=== PATIENT | female | born 2005 | race Caucasian/White ===

== ENCOUNTER 2023-05-05 13:12 | Emergency (ER) | payer OTHER ==
[2023-05-05 13:25] VITALS: TEMP 98.5
--- NOTE | 2023-05-05 17:16 | ED ---
General Adult HPI - General Chief complaint: Abdominal Pain Stated complaint: Abd Pain Time Seen by Provider: 05/05/23 16:53 Source: patient, family Mode of arrival: ambulatory Limitations: no limitations - History of Present Illness Initial comments: Dictation was produced using zanda dictation software. please excuse any grammatical, word or spelling errors. Chief Complaint: 17-year-old female presents with anterior abdominal mass History of Present Illness: Patient is a 17-year-old female complains ago she woke up from bed and noticed a bump on her mid abdomen. States that it's slightly painful to touch. No nausea or vomiting. Symptoms are not worse with cough, Valsalva or straining. She has no history of hernia. Denies any history of abdominal surgery. No other complaints. Patient frequently gets skin furuncles especially around seasons with humid temperatures The ROS documented in this emergency department record has been reviewed and confirmed by me. Those systems with pertinent positive or negative responses have been documented in the HPI. All other systems are other negative and/or noncontributory. - Related Data Previous Rx's Medication Instructions Recorded Clindamycin [Cleocin] 300 mg PO Q8H 5 Days #30 cap 05/05/23 Allergies Allergy/AdvReac Type Severity Reaction Status Date / Time No Known Allergies Allergy Verified 05/05/23 13:19 Review of Systems ROS Statement: Those systems with pertinent positive or pertinent negative responses have been documented in the HPI. ROS Other: All systems not noted in ROS Statement are negative. Past Medical History Past Medical History: No Reported History History of Any Multi-Drug Resistant Organisms: None Reported Past Surgical History: No Surgical Hx Reported Smoking Status: Never smoker Past Alcohol Use History: None Reported Past Drug Use History: None Reported General Exam - General Exam Comments Initial Comments: PHYSICAL EXAM: General Impression: Alert and oriented x3, not in acute distress HEENT: Normocephalic atraumatic, extra-ocular movements intact, pupils equal and reactive to light bilaterally, mucous membranes moist. Cardiovascular: Heart regular rate and rhythm Chest: Able to complete full sentences, no retractions, no tachypnea Abdomen: abdomen soft, non-tender, non-distended, no organomegaly, small mobile rubbery feeling cystlike structure to the epigastrium, size of approximately 1 x 1 cm. Mild erythema to the surface of the skin, no drainage Musculoskeletal: Pulses present and equal in all extremities, no peripheral edema Motor: no focal deficits noted Neurological: CN II-XII grossly intact, no focal motor or sensory deficits noted Skin: Intact with no visualized rashes Psych: Normal affect and mood Limitations: no limitations Course Vital Signs 05/05/23 13:15 Temperature 98.5 F Pulse Rate 100 Respiratory 20 Rate Blood Pressure 105/74 O2 Sat by Pulse 98 Oximetry - Reevaluation(s) Reevaluation #1: 05/05/23 17:11 [id number] bedside ultrasound shows cystlike structure measuring approximately 1 x 1 cm. No continuity past the peritoneum. No surrounding cobblestoning to suggest cellulitis Medical Decision Making - Medical Decision Making Was pt. sent in by a medical professional or institution (, PA, OIL REFINERY OPERATOR, urgent care, hospital, or fpc...) When possible be specific @ -No Did you speak to anyone other than the patient for history (EMS, parent, family, police, friend...)? What history was obtained from this source @ -No Did you review nursing and triage notes (agree or disagree)? Why? @ -I reviewed and agree with nursing and triage notes Were old charts reviewed (outside hosp., previous admission, EMS record, old EKG, old radiological studies, urgent care reports/EKG's, fpc records)? Report findings @ -No old charts were reviewed Differential Diagnosis (chest pain, altered mental status, abdominal pain women, abdominal pain men, vaginal bleeding, musculoskeletal, weakness, fever, dyspnea, syncope, headache, dizziness, GI bleed, back pain, seizure, CVA, palpatations, mental health)? @ -Differential Abdominal Pain Women: Appendicitis, Cholecystitis, diverticulosis, ischemic bowel, pancreatitis, hepatitis, UTI, gastroenteritis, AAA, incarcerated hernia, bowel obstruction, constipation, inflammatory bowel, hepatitis, peptic ulcer disease, splenic infar ction, perforated viscus, vulvitis, ovarian torsion, PID, kidney stone, placenta abruption, this is not meant to be an all-inclusive list EKG interpreted by me (3pts min.). @ -None done X-rays interpreted by me (1pt min.). @ -None done CT interpreted by me (1pt min.). @ -None done U/S interpreted by me (1pt. min.). @ -None done What testing was considered but not performed or refused? (CT, X-rays, U/S, labs)? Why? @ -None What meds were considered but not given or refused? Why? @ -None Did you discuss the management of the patient with other professionals (professionals i.e. , PA, OIL REFINERY OPERATOR, lab, RT, psych nurse, social sciences lecturer, senior rd engineer, teacher, senior administrative services officer, adult protective caseworker)? Give summary @ -No Was smoking cessation discussed for >3mins.? @ -No Was critical care preformed (if so, how long)? @ -No Were there social determinants of health that impacted care today? How? (Homelessness, low income, unemployed, alcoholism, drug addiction, transportation, low edu. Level, literacy, decrease access to med. care, shelter, rehab)? @ -No Was there de-escalation of care discussed even if they declined (Discuss DNR or withdrawal of care, Hospice)? DNR status @ -No What co-morbidities impacted this encounter? (DM, HTN, Smoking, COPD, CAD, Cancer, CVA, ARF, Chemo, Hep., AIDS, mental health diagnosis, sleep apnea, morbid obesity)? @ -None Was patient admitted / discharged? Hospital course, mention meds given and route, prescriptions, significant lab abnormalities, going to OR and other pertinent info. @ -17 Year-old female presents to the emergency department for anterior abdominal wall. Clinical presentation consistent with cyst versus abscess. [id number] bedside ultrasound does not suggest ventral hernia. Patient well- appearing. Patient states that she frequently gets furuncles to the thorax and abdomen. Patient discharged with prescription for antibiotics and follow up with general surgeon. Patient told that she may need drainage of the small mass if her symptoms don't improve over time. Undiagnosed new problem with uncertain prognosis? @ -No Drug Therapy requiring intensive monitoring for toxicity (Heparin, Nitro, Insulin, Cardizem)? @ -No Were any procedures done? @ -No Diagnosis/symptom? Acute, or Chronic, or Acute on Chronic? Uncomplicated (without systemic symptoms) or Complicated (systemic symptoms)? @ -Cyst versus abscess Side effects of treatment? @ -No Exacerbation, Progression, or Severe Exacerbation? @ -No Poses a threat to life or bodily function? How? (Chest pain, [place], [place], pneumonia, PE, COPD, DKA, ARF, appy, cholecystitis, CVA, Diverticulitis, Homicidal, Suicidal, threat to staff... and all critical care pts) @ -No Disposition Clinical Impression: Cyst Disposition: HOME SELF-CARE Condition: Fair Instructions (If sedation given, give patient instructions): Cyst (ED) Additional Instructions: seek medical attention if you begin having symptoms of fever, chills or night sweats along with nausea and worsening abdominal pain. Otherwise should her symptoms not improve these follow up with general surgeon for outpatient evaluation Prescriptions: Clindamycin [Cleocin] 300 mg PO Q8H 5 Days #30 cap Is patient prescribed a controlled substance at d/c from ED?: No Referrals: Jericho Diamond MD [STAFF PHYSICIAN] - 1-2 days Time of Disposition: 17:16
[2023-05-05 17:42] VITALS: BP 101/65; PULSE 82; RESP 18
== END 2023-05-05 17:43 | disposition home or self-care (01) ==
LOC: EC 13:12
DX: L05.01 Pilonidal cyst with abscess (principal)
CPT/HCPCS: 99283; 99284

== ENCOUNTER 2025-01-15 13:58 | Inpatient (IN) | payer MEDICAID, OTHER ==
--- NOTE | 2025-01-15 14:35 | ED ---
General Adult HPI - General Chief complaint: Psychiatric Symptoms Stated complaint: Mental health eval Time Seen by Provider: 01/15/25 14:16 Source: patient, family, RN notes reviewed Mode of arrival: ambulatory Limitations: no limitations - History of Present Illness Initial comments: Patient is a 19-year-old female presenting to the emergency department with concerns with mental health evaluation. Patient states she witnessed her boyfriend commit suicide 3 days ago. Patient has been depressed. Patient is not sleeping well. Patient is not eating or drinking well. Patient states she does not have thoughts or plan to kill herself however does wish that [facility] would take her away and that she would . - Related Data Previous Rx's Medication Instructions Recorded Clindamycin [Cleocin] 300 mg PO Q8H 5 Days #30 cap 05/05/23 Allergies Allergy/AdvReac Type Severity Reaction Status Date / Time No Known Allergies Allergy Verified 01/15/25 14:15 Review of Systems ROS Statement: Those systems with pertinent positive or pertinent negative responses have been documented in the HPI. ROS Other: All systems not noted in ROS Statement are negative. Constitutional: Denies: fever Eyes: Denies: eye pain ENT: Denies: ear pain Respiratory: Denies: cough Cardiovascular: Denies: chest pain Psychiatric: Reports: as per HPI, depression Past Medical History Past Medical History: No Reported History History of Any Multi-Drug Resistant Organisms: None Reported Past Surgical History: No Surgical Hx Reported Smoking Status: Vaper Past Alcohol Use History: None Reported Past Drug Use History: None Reported General Exam Limitations: no limitations General appearance: alert Head exam: Present: normocephalic Eye exam: Present: normal appearance Neck exam: Present: normal inspection Respiratory exam: Present: normal lung sounds bilaterally Cardiovascular Exam: Present: regular rate, normal rhythm GI/Abdominal exam: Present: soft. Absent: tenderness Extremities exam: Present: normal inspection Neurological exam: Present: alert Psychiatric exam: Present: depressed, flat affect Skin exam: Present: normal color Course Vital Signs 01/15/25 14:05 Temperature 98.8 F Pulse Rate 88 Respiratory 22 Rate Blood Pressure 135/86 O2 Sat by Pulse 95 Oximetry Medical Decision Making - Medical Decision Making Was pt. sent in by a medical professional or institution (, PA, ASPHALT PAVING FOREMAN, urgent care, hospital, or skilled nursing...) When possible be specific @ -No Did you speak to anyone other than the patient for history (EMS, parent, family, police, friend...)? What history was obtained from this source @ -Mother is present who confirms patient's history Did you review nursing and triage notes (agree or disagree)? Why? @ -I reviewed and agree with nursing and triage notes Were old charts reviewed (outside hosp., previous admission, EMS record, old EKG , old radiological studies, urgent care reports/EKG's, skilled nursing records)? Report findings @ -No old charts were reviewed Differential Diagnosis (chest pain, altered mental status, abdominal pain women, abdominal pain men, vaginal bleeding, weakness, fever, dyspnea, syncope, headache, dizziness, GI bleed, back pain, seizure, CVA, palpatations, mental health, musculoskeletal)? @ -Differential Mental Health Depression, anxiety, bipolar, psychosis, schizophrenia, borderline personality, situational depression, adjustment disorder, behavioral disorder, brain tumor, malingering, substance abuse, encephalopathy, medication reaction, dementia, hypothyroidism, degenerative neurologic disorder, lupus.... This is not meant to be all-inclusive list EKG interpreted by me (3pts min.). @ -As above X-rays interpreted by me (1pt min.). @ -None done CT interpreted by me (1pt min.). @ -None done U/S interpreted by me (1pt. min.). @ -None done What testing was considered but not performed or refused? (CT, X-rays, U/S, labs)? Why? @ -None What meds were considered but not given or refused? Why? @ -None Did you discuss the management of the patient with other professionals (professionals i.e. , PA, ASPHALT PAVING FOREMAN, lab, RT, psych nurse, social science instructor, rope maker, teacher, aviation ordnance officer, case assistant)? Give summary @ -Case discussed with mental health worker time with plans for psychiatric admission Was smoking cessation discussed for >3mins.? @ -No Was critical care preformed (if so, how long)? @ -No Were there social determinants of health that impacted care today? How? (Homelessness, low income, unemployed, alcoholism, drug addiction, transportation, low edu. Level, literacy, decrease access to med. care, shelter, rehab)? @ -No Was there de-escalation of care discussed even if they declined (Discuss DNR or withdrawal of care, Hospice)? DNR status @ -No What co-morbidities impacted this encounter? (DM, HTN, Smoking, COPD, CAD, Cancer, CVA, ARF, Chemo, Hep., AIDS, mental health diagnosis, sleep apnea, morbid obesity)? @ -None Was patient admitted / discharged? Hospital course, mention meds given and route, prescriptions, significant lab abnormalities, going to OR and other pertinent info. @ -Patient presents with depression. Patient will be admitted with psychiatric care. Undiagnosed new problem with uncertain prognosis? @ -No Drug Therapy requiring intensive monitoring for toxicity (Heparin, Nitro, Insulin, Cardizem)? @ -No Were any procedures done? @ -No Diagnosis/symptom? @ -Depression Acute, or Chronic, or Acute on Chronic? @ -Acute Uncomplicated (without systemic symptoms) or Complicated (systemic symptoms)? @ -Default Side effects of treatment? @ -No Exacerbation, Progression, or Severe Exacerbation? @ -No Poses a threat to life or bodily function? How? (Chest pain, [place], [place], pneumonia, PE, COPD, DKA, ARF, appy, cholecystitis, CVA, Diverticulitis, Homicidal, Suicidal, threat to staff... and all critical care pts) @ -No - Lab Data Lab Results 01/15/25 Range/Units 14:56 Urine Opiates Screen Not Detected (NotDetected) Ur Oxycodone Screen Not Detected (NotDetected) Urine Methadone Screen Not Detected (NotDetected) Ur Barbiturates Screen Not Detected (NotDetected) U Tricyclic Antidepress Not Detected (NotDetected) Ur Phencyclidine Scrn Not Detected (NotDetected) Ur Amphetamines Screen Not Detected (NotDetected) U Methamphetamines Scrn Not Detected (NotDetected) U Benzodiazepines Scrn Detected H (NotDetected) Urine Cocaine Screen Not Detected (NotDetected) U Marijuana (THC) Screen Detected H (NotDetected) Disposition Clinical Impression: Depression Disposition: TRANSFER TO PSYCH HOSP/UNIT Is patient prescribed a controlled substance at d/c from ED?: No Referrals: None,Stated [Primary Care Provider] - 1-2 days Time of Disposition: 16:00
[2025-01-15 15:22] LABS: Amphetamine Screen,Urine Not Detected (NotDetected); Barbiturate Screen,Urine Not Detected (NotDetected); Benzodiazepines Screen,Urine Detected (NotDetected); Cocaine Screen,Urine Not Detected (NotDetected); Methadone Screen, Urine Not Detected (NotDetected); Opiate Screen,Urine Not Detected (NotDetected); Oxycodone Screen, Urine Not Detected (NotDetected); Phencyclidine Screen,Urine Not Detected (NotDetected); Tricyclic Antidepressant,Urine Not Detected (NotDetected); Urn Cannabinoid Scrn Detected (NotDetected)
[2025-01-15 18:45] LABS: Influenza A Not Detected (Not Detectd); Influenza B Not Detected (Not Detectd); RSV Not Detected (Not Detectd)
[2025-01-15] MEDS ORDERED: ACETAMINOPHEN TAB 325 MG TAB PO PRN (22:14)
[2025-01-15] MEDS ORDERED: OLANZapine 10 MG VIAL IM PRN (22:14)
[2025-01-15] MEDS ORDERED: hydrOXYzine HCL 25 MG TAB PO PRN (22:14)
[2025-01-15] MEDS ORDERED: MAG HYDROX/AL HYDROX/SIMETH 355 ML BOTTLE PO PRN (22:14)
[2025-01-15] MEDS ORDERED: IBUPROFEN 600 MG TAB PO PRN (22:14)
[2025-01-15] MEDS ORDERED: MAGNESIUM HYDROXIDE 2,400 MG/30 ML CUP PO PRN (22:14)
[2025-01-15] MEDS: OLANZapine 5 MG TAB PO PRN (23:28)
--- NOTE | 2025-01-16 00:53 | P.HPIM ---
History of Present Illness H&P Date: 01/16/25 Chief Complaint: Medical management 19-year-old female patient with no significant past medical history who is admitted under behavioral unit for management of depression. Past medical history none Past surgical history none Social history : No tobacco use, no alcohol use and no illicit drug use. She reports that she vapes PE : General: nontoxic, no distress, appears at stated age Derm: warm, dry, intact Head: atraumatic, normocephalic, symmetric Eyes: EOMI, anicteric sclera Mouth: no lip lesion, mucus membranes moist Cardiovascular: S1 S2 reg, no murmur, rubs, or gallops Lungs: CTA bilateral, no rales, no accessory muscle use Abdominal: soft, non-tender to palpataion, no appreciable organomegaly Extremities: no gross muscle atrophy, no edema, no contractures Neuro: Alert, Oriented, CNII-XII grossly intact, gait normal II: Pupils equal and reactive, no RAPD, normal visual field and fundus III, IV, : EOM intact, no gaze preference or deviation V: normal VII: no facial asymmetry VIII: normal hearing to speech Assessment and plan : - Major depression disorder: Managed by behavioral unit Time spent : 35 min Past Medical History Past Medical History: No Reported History History of Any Multi-Drug Resistant Organisms: None Reported Past Surgical History: No Surgical Hx Reported Smoking Status: Never smoker Past Alcohol Use History: None Reported Past Drug Use History: None Reported Medications and Allergies Home Medications Medication Instructions Recorded Confirmed Type Acetaminophen/Diphenhydramine 1 tab PO HS PRN 01/15/25 01/15/25 History [Tylenol PM 500-25mg] Allergies Allergy/AdvReac Type Severity Reaction Status Date / Time No Known Allergies Allergy Verified 01/15/25 17:36 Physical Exam Vitals: Vital Signs Temp Pulse Pulse Resp BP BP Pulse Ox 01/15/25 22:44 98.0 F 88 18 106/63 98 01/15/25 21:01 98.1 F 80 18 105/74 97 01/15/25 14:05 98.8 F 88 22 135/86 95 Intake and Output 01/15/25 01/15/25 01/16/25 14:59 22:59 06:59 Other: Weight 72.575 kg 83.915 kg 83.915 kg Results Labs: Abnormal Lab Results - Last 24 Hours (Table) 01/15/25 Range/Units 14:56 U Benzodiazepines Scrn Detected H (NotDetected) U Marijuana (THC) Screen Detected H (NotDetected)
[2025-01-16 08:13] LABS: Basophils # (A) 0.06 10*3/uL (0.00-0.10); Basophils % (A) 0.5 %; Eosinophils # (A) 0.08 10*3/uL (0.04-0.35); Eosinophils % (A) 0.7 %; HCT 41.9 % (37.2-46.3); HGB 14.4 g/dL (12.0-15.0); Lymphocytes # (A) 4.51 10*3/uL (0.90-5.00); Lymphocytes % (A) 37.3 %; MCH 31.6 pg (27.0-32.0); MCHC 34.4 g/dL (32.0-37.0); MCV 91.9 fL (80.0-97.0); Mean Platelet Volume 12.2 fL (9.5-12.2); Monocytes # (A) 0.68 10*3/uL (0.20-1.00); Monocytes % (A) 5.6 %; Neutrophils # (A) 6.74 10*3/uL (1.80-7.70); Neutrophils % (A) 55.7 %; Platelet Count 276 10*3/uL (140-440); RBC 4.56 10*6/uL (4.10-5.20); RDW 12.4 % (11.5-14.5)
[2025-01-16 08:25] LABS: ALT 11 U/L (4-34); AST 20 U/L (14-36); African American GFR (CKD) >90 (>60 ml/min/1.73 sqM); Albumin 4.7 g/dL (3.5-5.0); Alkaline Phosphatase 86 U/L (38-126); Anion Gap 10 mmol/L; Bilirubin, Delta 0.1 mg/dL (0.0-0.2); Bilirubin,Unconjugated 0.4 mg/dL (0.0-1.1); Blood Urea Nitrogen 13 mg/dL (7-17); Calcium 9.7 mg/dL (8.4-10.2); Carbon Dioxide 27 mmol/L (22-30); Chloride 104 mmol/L (98-107); Glucose 89 mg/dL (74-99); Non-African American GFR(CKD) >90 (>60 ml/min/1.73 sqM); Potassium 3.9 mmol/L (3.5-5.1); Sodium 141 mmol/L (137-145); Total Bilirubin 0.5 mg/dL (0.2-1.3); Total Protein 7.4 g/dL (6.3-8.2)
--- NOTE | 2025-01-16 11:47 | P.HP ---
Psychiatric H&P - . H&P Date: 01/16/25 History & Physical: Allergies Allergy/AdvReac Type Severity Reaction Status Date / Time No Known Allergies Allergy Verified 01/15/25 17:36 Vital Signs Temp 98.0 F 01/15/25 22:44 Pulse 88 01/15/25 22:44 Resp 18 01/15/25 22:44 BP 106/63 01/15/25 22:44 Pulse Ox 98 01/15/25 22:44 FiO2 Intake & Output 01/15/25 01/16/25 01/16/25 18:59 06:59 18:59 Weight 72.575 kg 83.915 kg Laboratory Last Values WBC 12.10 10*3/uL (4.50-10.00) H 01/16/25 07:41 RBC 4.56 10*6/uL (4.10-5.20) 01/16/25 07:41 Hgb 14.4 g/dL (12.0-15.0) 01/16/25 07:41 Hct 41.9 % (37.2-46.3) 01/16/25 07:41 MCV 91.9 fL (80.0-97.0) 01/16/25 07:41 MCH 31.6 pg (27.0-32.0) 01/16/25 07:41 MCHC 34.4 g/dL (32.0-37.0) 01/16/25 07:41 Plt Count 276 10*3/uL (140-440) 01/16/25 07:41 MPV 12.2 fL (9.5-12.2) 01/16/25 07:41 Immature Gran % (Auto) 0.2 % 01/16/25 07:41 Neutrophils % 55.7 % 01/16/25 07:41 Lymphocytes % 37.3 % 01/16/25 07:41 Monocytes % 5.6 % 01/16/25 07:41 Eosinophils % 0.7 % 01/16/25 07:41 Basophils % 0.5 % 01/16/25 07:41 Immature Gran # 0.03 10*3/uL (0.00-0.04) 01/16/25 07:41 Neutrophils # 6.74 10*3/uL (1.80-7.70) 01/16/25 07:41 Lymphocytes # 4.51 10*3/uL (0.90-5.00) 01/16/25 07:41 Monocytes # 0.68 10*3/uL (0.20-1.00) 01/16/25 07:41 Eosinophils # 0.08 10*3/uL (0.04-0.35) 01/16/25 07:41 Basophils # 0.06 10*3/uL (0.00-0.10) 01/16/25 07:41 Urine HCG, Qual Not Detected (Not Detectd) 01/15/25 14:56 Urine Opiates Screen Not Detected (NotDetected) 01/15/25 14:56 Ur Oxycodone Screen Not Detected (NotDetected) 01/15/25 14:56 Urine Methadone Screen Not Detected (NotDetected) 01/15/25 14:56 Ur Barbiturates Screen Not Detected (NotDetected) 01/15/25 14:56 U Tricyclic Antidepress Not Detected (NotDetected) 01/15/25 14:56 Ur Phencyclidine Scrn Not Detected (NotDetected) 01/15/25 14:56 Ur Amphetamines Screen Not Detected (NotDetected) 01/15/25 14:56 U Methamphetamines Scrn Not Detected (NotDetected) 01/15/25 14:56 U Benzodiazepines Scrn Detected (NotDetected) H 01/15/25 14:56 Urine Cocaine Screen Not Detected (NotDetected) 01/15/25 14:56 U Marijuana (THC) Screen Detected (NotDetected) H 01/15/25 14:56 Influenza Type A (PCR) Not Detected (Not Detectd) 01/15/25 13:30 Influenza Type B (PCR) Not Detected (Not Detectd) 01/15/25 13:30 RSV (PCR) Not Detected (Not Detectd) 01/15/25 13:30 SARS-CoV-2 (PCR) Not Detected (Not Detectd) 01/15/25 13:30 Dictation was produced using [employer] dictation software. Please excuse any grammatical, word or spelling errors. IDENTIFYING DATA: Patient is a 19 years old female presents to the emergency department for mental health evaluation. The patient lost her boyfriend to suicide 3 days ago. HPI: Patient presented to the hospital for mental health evaluation, she has been under a lot of stress since she witnessed her boyfriend commit suicide 3 days ago. She has been feeling down, depressed, not sleeping, drinking or eating well. The patient reported that she has no plan to harm or end her life however reported that she wish that [facility] will take her away and that she would . Per chart review the patient presented with her mother due to increased depression, reported SI with no plan. She witnessed her boyfriend committing suicide on . She has been experiencing depression symptoms for about 12 months however that increased after her boyfriend suicide. Upon evaluation in the unit the patient was in her room, agreed to speak with the technical document writer and the office. She states that her BF killed himself last Saturday, while talking to her on , states that he stole a car, and he had a court, states that she saw him hanging himself, and she called the police. States that he cheated on her and she threaten to leave him, states that he had really bad mental issues. She states that she was crying too much, feeling bad, depressed, and guilty, she admitted to feeling hopeless, helpless, and worthless for about 1 yr, and reported that depression increased lately. She rated depression at 9/10. She denied any current SI/HI or self harm, she denied any intention or plan, "I'm not like that." She admitted to being overwhelmed around people, and usually likes to keep to herself. She rated anxiety at 9/10. She states that music helps. Sleep was good last night, at home it was not that good, and she was crying. She denied nightmares, or flashbacks. Patient denies any flight of ideas racing thoughts and increased in goal directed behavior. She denied any manic or hypomanic symptoms. At this time patient denies any auditory or visual hallucinations. She denied using tobacco. Reported that she uses cannabis at times, last use 2 days ago, claims that she uses once a week, states that she stopped using alcohol 3 weeks ago, used to take 3-7 shots once a week, denied any withdrawal symptoms, or seizures in the past. Denied any other substances. States that she takes some medication at home for anxiety however she could not remember the name, she gave verbal permission for the technical document writer to speak with her mother however she could not recall her mother phone number. PAST PSYCHIATRIC HISTORY: - Inpatient Hospitalizations: denies - Outpatient Care: denies - Current Psychotropics: denies - Prior Psychotropics/Therapy: states that she use to talk anxiety medication, could not recall the name - Prior Psychiatric dx: denies - Suicidal Attempts: denies - Trauma History: recent BF suicide PMH: as per ER note Past Medical History: No Reported History History of Any Multi-Drug Resistant Organisms: None Reported Past Surgical History: No Surgical Hx Reported Smoking Status: Vaper Past Alcohol Use History: None Reported Past Drug Use History: None Reported ALLERGIES: as per EMR CHEMICAL DEPENDENCY HISTORY: as per HPI FAMILY PSYCHIATRIC/SUBSTANCE USE HISTORY: denies SOCIAL HISTORY: Patient was born and raised in [facility], lives with mom, and grandmother, claims that she has high school diploma, she is not working, reported that she has a learning disability. MENTAL STATUS EXAM: General Appearance: Patient appears to be stated age is alert, directable, and attempts to cooperate. Patient appears to have fair hygiene and grooming. Behavior: Patient is seated without any agitated behavior. Speech: Patient's speech is fluent and nonpressured. Mood/Affect: Patient reports their mood is "depressed", affect is congruent and constricted. Suicidality/Homicidality: Patient denies having any homicidal ideation intent or plan. Denies any suicidal ideations intent or plan Perceptions: Patient denies any visual hallucinations and denies any auditory hallucinations Though content/process: There is no evidence of any delusional thought content and thought process is linear and goal-directed. Memory and concentration: AOX3, grossly intact for the purposes of this session. Can spell "WORLD" backwards Judgment and insight: poor STRENGTHS/WEAKNESSES: strength is that patient is resilient. Weakness is that patient has poor judgment and is impulsive INTELLECT: average IMPRESSIONS: Major depressive disorder, recurrent, moderate Generalized anxiety disorder Rule out adjustment disorder with anxious and depressed mood Rule out acute stress disorder Rule out developmental/intellectual disability PLAN: -Patient is admitted under voluntary status to [facility]HU for stabilization of psychiatric symptoms and safety. Patient has signed adult voluntary form andmedication consent and is placed in patient's chart. -Medications : Start Prozac 10 mg p.o. daily to help with mood, depression and anxiety Start hydroxyzine 10 mg p.o. at bedtime to help with sleep -Hydroxyzine, Zyprexa PRN for agitation/aggression -Patient was counselled on cannabis abuse and desired to cut back on use -Collateral will be helpful, patient verbally agreed for us to contact her mother however she could not remember the phone number -Patient was informed of the risks, benefits and side effects of the medication and patient verbally consented to taking the medications, education was provided into the black box warning of increasing suicidal thoughts in 24 years old and younger. Patient signed med consent form and was placed in chart. -Internal Medicine consult to perform medical evaluation and physical. -NRT - not needed as patient does not smoke -SW on board for discharge planning. Encourage patient to participate in groups to work on coping skills. 01/16/25 08:20 01/16/25 09:14 01/16/25 11:42
[2025-01-16] MEDS: FLUoxetine HCL 10 MG CAP PO SCH (12:24)
[2025-01-16 13:22] LABS: Chol/HDL Ratio 1.42 Ratio; VLDL Calculation 4.58 mg/dL (5.00-40.00)
[2025-01-16] MEDS: hydrOXYzine HCL 10 MG TAB PO SCH (20:43)
--- NOTE | 2025-01-17 11:32 | P.PN ---
Progress Note - Text Progress Note Date: 01/17/25 Dictation was produced using [employer] dictation software. Please excuse any grammatical, word or spelling errors. Interval history: Patient was seen in the hallway and was directable and agreeable to speak with the scientific technical writer in the office for psychiatric follow-up. The patient states that she is feeling a little down today however overall better than yesterday, states that she slept well last night, and is has been eating her meals, claims improvement in her appetite. She states that depression, and anxiety has been improving and reported that being able to talk to others in the unit has been helping. She rated depression at 4/10, and anxiety at 2/10. States that she is still having the sad feeling and the pain in her heart, however she has been trying to distract herself, states that his is tomorrow and she is sad about it, states that "I may cry tomorrow." She denied any current SI/HI or self harm. Denied any AVH, or paranoia. States that mom was able to visit her yesterday and claims that it was good. States that she has been talking her medication and reported that she feel the night medication has been helping her falling a sleep. She denied any current side effects. She is tending to her ADL. Reported that she feels safe in the unit. MENTAL STATUS EXAM: General Appearance: Patient appears to be stated age is alert, directable, and attempts to cooperate. Patient appears to have fair hygiene and grooming. Behavior: Patient is seated without any agitated behavior. Speech: Patient's speech is fluent and nonpressured. Mood/Affect: Patient reports their mood is "down a little", affect is congruent and constricted. Suicidality/Homicidality: Patient denies having any homicidal ideation intent or plan. Denies any suicidal ideations intent or plan Perceptions: Patient denies any visual hallucinations and denies any auditory hallucinations Though content/process: There is no evidence of any delusional thought content and thought process is linear and goal-directed. Memory and concentration: AOX3, grossly intact for the purposes of this session. Can spell "WORLD" backwards Judgment and insight: Mildly improving IMPRESSIONS: Major depressive disorder, recurrent, moderate Generalized anxiety disorder Rule out adjustment disorder with anxious and depressed mood Rule out acute stress disorder Rule out developmental/intellectual disability Assessment/Plan: -Patient continues to meet criteria for inpatient psychiatric admission for symptom stabilization and safety. Patient is admitted under voluntary status to [facility] for stabilization of psychiatric symptoms and safety. Patient has signed adult voluntary form and medication consent and is placed in patient's chart. -Medications : - Continue Prozac 10 mg p.o. daily to help with mood, depression and anxiety - Continue hydroxyzine 10 mg p.o. at bedtime to help with sleep -Hydroxyzine, Zyprexa PRN for agitation/aggression -Patient was counselled on cannabis abuse and desired to cut back on use -Collateral will be helpful, patient verbally agreed for us to contact her mother however she could not remember the phone number -Patient was informed of the risks, benefits and side effects of the medication and patient verbally consented to taking the medications, education was provided into the black box warning of increasing suicidal thoughts in 24 years old and younger. Patient signed med consent form and was placed in chart. -SW on board for discharge planning. Encourage patient to participate in groups to work on coping skills.
[2025-01-18] MEDS: buPROPion XL 150 MG TAB.ER.24H PO SCH (10:44)
--- NOTE | 2025-01-18 12:23 | P.PN ---
Progress Note - Text Progress Note Date: 01/18/25 Interval History: Patient was seen wandering the hallways and was directable and agreeable to zohreh cosby with keno writer in the office. Patient reports being here due to her witnessing her boyfriend complete suicide on FaceTime. She talked about having difficulties in their relationship due to infidelity on his end. She states his is today. The grieving process was discussed with the patient and she was able to identify a strong support network of family and friends. She reports making friends here on the unit as well. She was future oriented, talked about her new puppy she is looking forward to seeing once discharge. She is concerned about potential weight gain and after discussion, patient was agreeable with changing antidepressants to a more weight neutral one. At this time patient denies any suicidal or homicidal ideations, intent or plan. Patient denies any auditory, visual hallucinations and denies any paranoia or delusions. Patient denies any side effects from the medications and has been compliant with meds. Mental Status Exam: General Appearance: Patient appears to be stated age is alert, directable, and cooperative. She has purple dyed hair with fair grooming and hygiene Behavior: Patient is calmly seated without any agitated behavior. Speech: Patient's speech is fluent and nonpressured. Mood/Affect: Mood is improving mildly, affect is congruent and reactive. Suicidality/Homicidality: Patient denies having any suicidal or homicidal ideation intent or plan. Perceptions: Patient denies any visual hallucinations and denies any auditory hallucinations Though content/process: There is no evidence of any delusional thought content and thought process is linear and goal-directed. Memory and concentration: AOX3, grossly intact for the purposes of this session Judgment and insight: Improving mildly Assessment Major depressive disorder, recurrent, moderate Generalized anxiety disorder Plan: -Patient continues to meet criteria for inpatient psychiatric admission for symptom stabilization and safety. Patient has signed adult voluntary form and me dication consent and was placed in patient's chart. -Medications: Discontinue Prozac and start Wellbutrin XL 150 mg daily for depression, continue hydroxyzine 10 mg at bedtime for insomnia -When necessary hydroxyzine and Zyprexa for agitation/aggression. -Labs: Reviewed with patient and grossly WNL -SW on board for discharge planning. Encouraged the patient to participate in milieu. Anticipate discharge in ~2 days, home with family
[2025-01-19 08:28] VITALS: RESP 16
--- NOTE | 2025-01-19 12:33 | P.PN ---
Progress Note - Text Progress Note Date: 01/19/25 Interval History: Patient was seen wandering the hallways and was directable and agreeable to sp harjeet with entry writer in the office. Patient appeared restless however she denied feeling restless and could be a component of anxiety. She reports tolerating her medications well, denying any adverse effects. She has no updates on the yesterday. She has been attending groups. She reports good sleep. At this time patient denies any suicidal or homicidal ideations, intent or plan. Patient denies any auditory, visual hallucinations and denies any paranoia or delusions. Patient denies any side effects from the medications and has been compliant with meds. Mental Status Exam: General Appearance: Patient appears to be stated age is alert, directable, and cooperative. She has purple dyed hair with fair grooming and hygiene Behavior: Patient is calmly seated without any agitated behavior. Speech: Patient's speech is fluent and nonpressured. Mood/Affect: Mood is improving mildly, affect is congruent and constricted. Suicidality/Homicidality: Patient denies having any suicidal or homicidal ideation intent or plan. Perceptions: Patient denies any visual hallucinations and denies any auditory hallucinations Though content/process: There is no evidence of any delusional thought content and thought process is linear and goal-directed. Memory and concentration: AOX3, grossly intact for the purposes of this session Judgment and insight: Improving mildly Assessment Major depressive disorder, recurrent, moderate Generalized anxiety disorder Plan: -Patient continues to meet criteria for inpatient psychiatric admission for symptom stabilization and safety. Patient has signed adult voluntary form and medication consent and was placed in patient's chart. -Medications: Continue Wellbutrin XL 150 mg daily for depression, hydroxyzine 10 mg at bedtime for insomnia -When necessary hydroxyzine and Zyprexa for agitation/aggression. -Labs: Grossly WNL -SW on board for discharge planning. Encouraged the patient to participate in milieu. Anticipate discharge home with family tomorrow
[2025-01-20 09:09] VITALS: BP 94/63; PULSE 108; TEMP 97.2
--- NOTE | 2025-01-20 12:12 | P.DS ---
Providers Date of admission: 01/15/25 19:48 Expected date of discharge: 01/20/25 Attending physician: Ariella Thorne MD Consults: 01/15/25 22:14 Consult Physician Routine Consulting Provider: Quincy Rothman Consult Reason/Comments: Medical H&P Do you want consulting provider notified?: Already Contacted Primary care physician: Stated None - Discharge Diagnosis(es) (1) Major depressive disorder, recurrent, moderate Status: Acute Priority: High (2) Generalized anxiety disorder Status: Acute Priority: Medium Hospital Course: Admission HPI: Admission note was completed by Dr. Lehman "Patient presented to the hospital for mental health evaluation, she has been under a lot of stress since she witnessed her boyfriend commit suicide 3 days ago. She has been feeling down, depressed, not sleeping, drinking or eating well. The patient reported that she has no plan to harm or end her life however reported that she wish that [facility] will take her away and that she would . Per chart review the patient presented with her mother due to increased depression, reported SI with no plan. She witnessed her boyfriend committing suicide on . She has been experiencing depression symptoms for about 12 months however that increased after her boyfriend suicide. Upon evaluation in the unit the patient was in her room, agreed to speak with the web content writer and the office. She states that her BF killed himself last Saturday, while talking to her on , states that he stole a car, and he had a court, states that she saw him hanging himself, and she called the police. States that he cheated on her and she threaten to leave him, states that he had really bad mental issues. She states that she was crying too much, feeling bad, depressed, and guilty, she admitted to feeling hopeless, helpless, and worthless for about 1 yr, and reported that depression increased lately. She rated depression at 9/10. She denied any current SI/HI or self harm, she denied any intention or plan, "I'm not like that." She admitted to being overwhelmed around people, and usually likes to keep to herself. She rated anxiety at 9/10. She states that music helps. Sleep was good last night, at home it was not that good, and she was crying. She denied nightmares, or flashbacks. Patient denies any flight of ideas racing thoughts and increased in goal directed behavior. She denied any manic or hypomanic symptoms. At this time patient denies any auditory or visual hallucinations. She denied using tobacco. Reported that she uses cannabis at times, last use 2 days ago, claims that she uses once a week, states that she stopped using alcohol 3 weeks ago, used to take 3-7 shots once a week, denied any withdrawal symptoms, or seizures in the past. Denied any other substances. States that she takes some medication at home for anxiety however she could not remember the name, she gave verbal permission for the web content writer to speak with her mother however she could not recall her mother phone number." Hospital course: Upon admission to the unit patient was directable and agreeable to commence treatment and signed adult voluntary form.. Patient got along well with other patients on the unit and followed unit protocol. Patient was compliant with the medications and denied any side effects throughout hospital course. Patient was started on Prozac however she expressed concerns with potential weight gain and thus she was started instead on Wellbutrin XL 150 mg daily for depression, hydroxyzine 10 mg at bedtime for insomnia. Patient spoke of her stressors and engaged in therapy both group and individual. Patient was also seen by medical team for history and physical exam. Throughout the course of the hospitalization patient gradually improved with regards to mood, anxiety, sleep and became more future oriented with improved insight and judgment. On the day of discharge patient denied any suicidal or homicidal ideations intent or plan denied any auditory or visual hallucinations. The patient denied any access to guns or weapons. Patient denied any paranoia and did not endorse any delusions. Patient does not have a significant history of substance abuse and was counseled on abstaining from all substances including alcohol and marijuana. Patient was also counseled on the medications and need for regular compliance and was encouraged to follow-up with their outpatient appointment for mental health and also for primary care. Patient to be discharged home with family and will follow-up with [facility]. Mental status exam: General Appearance: Patient appears to be stated age is alert, pleasant, and cooperative. Patient is in no acute distress and has improved hygiene and grooming Behavior: Patient is calmly seated without any agitated behavior. Speech: Patient's speech is fluent and nonpressured. Mood/Affect: Patient reports their mood is "good", affect is congruent and euthymic. Suicidality/Homicidality: Patient denies having any suicidal or homicidal ideation intent or plan. Perceptions: Patient denies any auditory or visual hallucinations. Though content/process: There is no evidence of any delusional thought content and thought process is linear and goal-directed. More future oriented Memory and concentration: AOX3, grossly intact for the purposes of this session. Can spell "WORLD" backwards correctly. Judgment and insight: Good Impression: Major depressive disorder, recurrent, moderate Generalized anxiety disorder Plan: -Continue with discharge today as patient has improved and stabilized psychiatrically and is not currently an imminent threat to themself and/or others. -Continue medications: Wellbutrin XL 150 mg daily, hydroxyzine 10 mg at bedtime -Patient was counseled on the need for medication compliance and appropriate follow-up at mental health and also primary care for medical issues. Patient verbalized understanding and agreed. -Social work to help coordinate patients discharge today. also to ensure safe home environment that guns/weapons are either removed from the home or locked away. Social work also to arrange for patients follow up appointments with [facility] for psychiatric care along with follow up with primary care provider. -Patient counseled on abstaining from recreational drugs and marijuana and alcohol. Was informed/educated on the adverse effects on their physical and mental health. Patient verbally agreed and understood. -Patient was instructed to return to the hospital or seek immediate medical care if their psychiatric or medical symptoms do worsen or reoccur. Abnormal Labs 01/15/25 01/16/25 01/16/25 14:56 07:41 07:41 WBC 12.10 H VLDL Cholesterol, Calc 4.58 L HDL Cholesterol 61.40 H U Benzodiazepines Scrn Detected H U Marijuana (THC) Screen Detected H Allergies Allergy/AdvReac Type Severity Reaction Status Date / Time No Known Allergies Allergy Verified 01/15/25 17:36 Vital Signs Temp 97.2 F L 01/20/25 09:00 Pulse 108 H 01/20/25 09:00 Resp 16 01/20/25 09:00 BP 94/63 01/20/25 09:00 Pulse Ox 98 01/20/25 09:00 FiO2 Patient Condition at Discharge: Stable Plan - Discharge Summary Discharge Rx Participant: No New Discharge Prescriptions: New hydrOXYzine HCL [Atarax] 10 mg PO HS 30 Days #30 tab buPROPion XL [Wellbutrin XL] 150 mg PO DAILY 30 Days #30 tab Discontinued Acetaminophen/Diphenhydramine [Tylenol PM 500-25mg] 1 tab PO HS PRN PRN Reason: SLEEP Discharge Medication List buPROPion XL [Wellbutrin XL] 150 mg PO DAILY 30 Days #30 tab 01/20/25 [Rx] hydrOXYzine HCL [Atarax] 10 mg PO HS 30 Days #30 tab 01/20/25 [Rx] Follow up Appointment(s)/Referral(s): [facility], Med [Other] - 1 Week [facility] [Outside] - 01/21/25 1:00 pm (with Caridad ) Patient Instructions/Handouts: Depression (DC), Anxiety (GEN) Activity/Diet/Wound Care/Special Instructions: Avoid the use of street drugs and alcohol. Take all medications as prescribed. When you are in need of refills on your medications, please contact your medical provider and/or outpatient psychiatrist/provider to have this done. Please go to your scheduled outpatient appointment for aftercare treatment. If symptoms return or become worse, call the crisis line at and/or go to the nearest emergency room for evaluation. National Suicide Hotline [address] [facility] confidentiality statement: "The information contained in this communication, including attachments, is confidential, may be privileged, and is intended only for the use of the named recipient(s). Unauthorized use, disclosure, forwarding or copying is strictly prohibited and may be unlawful. If you have received this communication in error, please notify me IMMEDIATELY at the phone number or pager listed above. Discharge Disposition: HOME SELF-CARE
== END 2025-01-20 11:38 | disposition home or self-care (01) | DRG 751 ==
LOC: EC 13:58 → 3MHU 19:48
PROVIDERS: ADMIT Psychiatry & Neurology Psychiatry; ATTEND Psychiatry & Neurology Psychiatry
DX: F33.1 Major depressive disorder, recurrent, moderate (principal); F17.290 Nicotine dependence, other tobacco product, uncomplicated; F41.1 Generalized anxiety disorder; G47.00 Insomnia, unspecified; Z79.899 Other long term (current) drug therapy; Z63.4 Disappearance and death of family member
CPT/HCPCS: 80053; 80061; 80306; 81025; 82075; 82248; 83036; 84443; 85025; 87636; 99285